=== PATIENT | male | born 1955 | race Caucasian/White ===

== ENCOUNTER 2016-12-04 06:15 | Inpatient (IN) | payer BC ==
--- NOTE | ~2016-12-04 | CO ---
Unit #: [id number] #: [id number] Patient: AMANDA MORALES JR [id number] [address] [address] [id number] MR#: [id number] NAME: AMANDA MORALES JR ROOM: 449 Age: 61 Sex: M Admission Date: 12/04/2016 : 1955 Attending Physician: Mario Phillips M.D. Consultation Date: 12/04/2016 CONSULTATION REPORT REASON FOR CONSULTATION Postop management. HISTORY OF PRESENT ILLNESS The patient is a 61-year-old male with a past medical history of hypertension, hyperlipidemia, coronary artery disease, diabetes, and obstructive sleep apnea, who was admitted by Dr. Phillips for right triple arthrodesis. The patient states that he has had about a seven-year history of right ankle pain. He states that it has been getting progressively worse. He states that the pain has been interfering with sleep. He underwent arthrodesis today. Regarding the patient's chronic medical conditions, he is diabetic. He is on metformin. He states that his blood sugars have been around 93 to 109. He has obstructive sleep apnea and is noncompliant with CPAP but does have the machine at home. He also has coronary artery disease and is status post multiple cardiac stents. He is followed by Dr. Lucia at [facility]. PAST MEDICAL HISTORY 1. Admission to [facility] in February 2015 for chest pain. 2. Coronary artery disease, status post cardiac stent placement, followed by Dr. Lucia. 3. Hypertension. 4. Hyperlipidemia. 5. Diabetes. 6. Obstructive sleep apnea, noncompliant with CPAP. PAST SURGICAL HISTORY 1. Bilateral knee surgery. 2. Cardiac catheterization. 3. Cardiac stent placement. SOCIAL HISTORY The patient is retired from [employer]. There is no tobacco or alcohol use. He typically walks without assistance. FAMILY HISTORY The patient's dad had coronary artery disease with his first heart attack in his 50s. ALLERGIES Unit #: [id number] #: [id number] Patient: AMANDA MORALES JR Morphine. HOME MEDICATIONS 1. Avapro 300 mg at bedtime. 2. Lipitor 20 mg at bedtime. 3. Plavix 75 mg daily. 4. Aspirin 81 mg daily. 5. Glucophage 500 mg twice daily. 6. Diphenhydramine 25 mg at bedtime p.r.n. REVIEW OF SYSTEMS A complete review of systems is negative except as indicated in the History of Present Illness. PHYSICAL EXAMINATION VITAL SIGNS: Temperature is 98, pulse 84, respirations 15, blood pressure 125/74, and oxygen saturation is 97%. GENERAL: Patient is a male who is awake, alert, and in no acute distress. HEENT: Head is atraumatic. Mucous membranes are moist. NECK: Supple. Trachea is midline. CARDIOVASCULAR: Regular rate and rhythm. LUNGS: Clear to auscultation bilaterally with no increased work of breathing. ABDOMEN: Soft and nontender with bowel sounds present in all four quadrants. EXTREMITIES: An Vinayak bandage is noted about the right ankle and is clean, dry, and intact. There is no pedal edema involving the left foot. NEUROLOGIC: Patient is awake and alert. He follows commands. PSYCHIATRIC: Mood and affect are normal. Patient is cooperative. SKIN: Skin of examined areas is warm and dry. DIAGNOSTIC STUDIES LABORATORY: Complete blood count is notable for MCV of 81.7. Basic metabolic panel notable for glucose of 126. CARDIOLOGY: EKG from September 04, 2016, showed normal sinus rhythm with a rate of 65 beats per minute. ASSESSMENT The patient is a 61-year-old male with: 1. Status post right ankle surgery. 2. Hypertension. 3. Hyperlipidemia. 4. History of coronary artery disease, status post multiple stent placement. 5. Diabetes. 6. Obstructive sleep apnea, noncompliant with CPAP. PLAN 1. Regarding diabetes, I have ordered a hemoglobin A1c, as well as low-dose sliding scale insulin with Accu-Cheks. 2. Regarding obstructive sleep apnea, the patient is on the sleep apnea protocol. Thank you very much for the consultation. We will follow the patient along closely with you. Unit #: [id number] #: [id number] Patient: AMANDA MORALSE JR Dictated by... Kia Peacock M.D. CARLEE/ramona TD: 12/04/2016 15:01 JOB #: [id number] CONSULTATION REPORT Page 1 of 1 X Kia Peacock MD X CONSULTATION REPORT
--- NOTE | ~2016-12-04 | OR ---
Unit #: [id number] #: [id number] Patient: AMANDA LAM JR [id number] [address] [place], [place] [address] [id number] I MR#: [id number] NAME: AMANDA LAM JR ROOM: [facility] Date of Procedure: 12/04/2016 Admission Date: 12/04/2016 Surgeon: Mario Phillips M.D. : 1955 Attending Physician: Mario Phillips M.D. Primary Care Physician: Generic Doctor Not In System OPERATIVE REPORT PREOPERATIVE DIAGNOSES 1. Stage III right posterior tibial tendon tear. 2. Right first tarsometatarsal joint arthritis. 3. Right ankle equinus. POSTOPERATIVE DIAGNOSES 1. Stage III right posterior tibial tendon tear. 2. Right first tarsometatarsal joint arthritis. 3. Right ankle equinus. PROCEDURES PERFORMED 1. Right foot triple arthrodesis (77614). 2. Right first tarsometatarsal joint fusion (96036). 3. Right gastrocnemius recession (67823). SKELP PROCESSOR MD [place] and DANIAL Lam. ANESTHESIA General and popliteal saphenous block. INDICATIONS FOR SURGERY The patient is a 61-year-old male with stage III right posterior tibial tendon dysfunction, which has left him with a rigid deformed foot. He has lost his medial longitudinal arch and has significant heel valgus. He also has arthritis of the first tarsometatarsal joint with the first metatarsal elevation. The patient is therefore to undergo surgical correction, which will entail triple arthrodesis fusion of the symptomatic first tarsometatarsal joint and gastrocnemius recession to treat his equinus. DESCRIPTION OF PROCEDURE The patient underwent right popliteal saphenous block. He was then taken to the operating room, placed in a supine position, and general anesthetic was induced. The right lower extremity was identified as the correct operative location during the time-out procedure. The IV antibiotic protocol was followed. The right leg was then prepped and draped in the usual sterile fashion. The leg was exsanguinated and the thigh tourniquet inflated to 300 mmHg. A lateral longitudinal incision was made over the sinus tarsi, ending at the base of the fourth metatarsal. Subcutaneous tissue was divided. The Unit #: [id number] #: [id number] Patient: AMANDA LAM JR extensor retinaculum was opened and the extensor digitorum brevis muscle was split longitudinally. The contents of the sinus tarsi were excised. A laminar director recreation was placed. The power osteotome, curved curettes, and rongeurs were utilized to remove the articular cartilage from both sides of the subtalar joint. The calcaneocuboid joint was then exposed with subperiosteal dissection. Baby Hohmann retractors were placed. The power osteotome, curved curettes, and rongeurs were then used to remove the cartilage from both sides of the calcaneocuboid joint. The underlying subchondral bone was feathered with the power osteotome. A dorsomedial midfoot incision was made between the anterior tibial and posterior tibial tendons. The subcutaneous tissue was divided. The joint capsule was opened, and the talonavicular joint was exposed with subperiosteal dissection. The joint was distracted with a laminar director recreation. The power osteotome, curved curettes, and rongeurs were then used to remove the articular cartilage from both sides of the talonavicular joint. The underlying subchondral bone was feathered with the power osteotome. 5 mL of Augment platelet-derived growth factor were then placed in all 3 joints. The subtalar joint was then reduced with the laminar director recreation by increasing the distance between the anterior calcaneal process and lateral talar process. The subtalar joint was fixated with an OrthoHelix 7.0 mm diameter cannulated screw placed from the posterior inferior heel into the talar neck. The midfoot was then pronated and adducted to correct this position. The talonavicular joint was then fixated to the cannulated OrthoHelix 5.5 mm diameter screw placed from distal to proximal. The calcaneocuboid joint was fixated with a 5.5 mm diameter screw placed from distal to proximal. A dorsal longitudinal incision was made over the first tarsometatarsal joint. The extensor hallucis longus tendon was retracted. The joint was exposed with subperiosteal dissection. The microsagittal saw and power osteotome were then used to remove the articular cartilage from both sides of the first tarsometatarsal joint. The underlying subchondral bone was feathered with the power osteotome. 1 mL of Augment platelet-derived growth factor was placed in the joint. The joint was then reduced by plantar flexing the first ray to correct forefoot varus. The joint was then fixated with two crossed OrthoHelix 4.0 mm diameter screws. One screw was placed from proximal to distal, the second was placed from dorsal distal to proximal plantar. Excellent fixation was achieved. Intraoperative C-arm fluoroscopy documented satisfactory hardware position and joint positions. A 5 cm posteromedial mid calf incision was then made. Subcutaneous tissue was divided. The deep fascia was opened. The interval between the gastrocnemius and soleus fascia was developed, and [place] scissors were then used to cut the gastrocnemius fascia. Following release, 10 degrees of ankle dorsiflexion was obtained. The tourniquet was released with a total tourniquet time of 2 hours 10 minutes. Bleeding was controlled with electrocautery. The deep tissues were closed with 2-0 Vicryl, subcutaneous tissue was closed with 3-0 Vicryl, and the skin was closed with interrupted 3-0 nylon horizontal Unit #: [id number] #: [id number] Patient: AMANDA LAM JR mattress sutures. Xeroform gauze, dressing, sponges, and a posterior fiberglass splint were applied with two Vinayak wraps. The patient was then transported to the recovery room in stable condition. ESTIMATED BLOOD LOSS 100 mL. COMPLICATIONS None. SPECIMENS None. TOURNIQUET TIME 2 hours 10 minutes. Dictated byMiguel Wong/gm TD: 12/05/2016 03:45 JOB #: [id number] OPERATIVE REPORT Page 1 of 1 X Daniel Phillips MD X PROCEDURE OPERATIVE NOTE
--- NOTE | ~2016-12-04 | EKG ---
PATIENT: AMANDA MORALES UNIT #: [id number] Ventricular Rate: 68 BPM Atrial Rate: 68 BPM P-R Interval: 142 ms QRS Duration: 104 ms Q-T Interval: 430 ms QTC Calculation(Bezet): 457 ms P University: 33 degrees Calculated R University: -5 degrees Calculated T University: 41 degrees Diagnosis Line: Normal sinus rhythm Diagnosis Line: Normal ECG Diagnosis Line: When compared with ECG of 04-SEP-2016 09:32, Diagnosis Line: No significant change was found Diagnosis Line: Confirmed by JASWINDER CAMPBELL MD ([id number]) on Diagnosis Line: 12/05/2016 8:49:08 AM INTERPRETING MD: SHANNAN CORREIA
--- NOTE | ~2016-12-04 | HP ---
Unit #: [id number] #: [id number] Patient: AMANDA MORALES JR [id number] [address] [address] [id number] I MR#: [id number] NAME: AMANDA MORALES JR ROOM: 449 Age: 61 Sex: M Admission Date: 12/04/2016 : 1955 Attending Physician: Mario Phillips M.D. Primary Care Physician: Generic Doctor Not In System HISTORY AND PHYSICAL CHIEF COMPLAINT Right foot pain and deformity. HISTORY OF PRESENT ILLNESS The patient is a 60-year-old male with a long history of right foot and ankle pain secondary to stage III posterior tibial tendon dysfunction. Ankle x-rays show valgus of the tibiotalar joint. He has failed nonoperative treatment to include bracing and activity modification. He is therefore admitted for triple arthrodesis, first tarsometatarsal joint fusion and gastrocnemius recession with use of Augment platelet direct growth factor. PAST MEDICAL HISTORY Remarkable for: 1. Coronary artery disease. 2. Lumbosacral degenerative disk disease. 3. Essential hypertension. 4. Knee arthritis. PAST SURGICAL HISTORY 1. Coronary angioplasty with stent placement. 2. Skin cancer excision from the left ear and eyebrow. HOME MEDICATIONS 1. Amlodipine. 2. Aspirin. 3. Atorvastatin. 4. Plavix. 5. Avapro. 6. Mobic. 7. Norvasc. 8. Lipitor. ALLERGIES Morphine. SOCIAL HISTORY The patient is a nonsmoker. He denies illicit drug use. He denies alcohol use. FAMILY HISTORY Unknown. Unit #: [id number] #: [id number] Patient: AMANDA MORALES JR REVIEW OF SYSTEMS Unremarkable except as noted in history of present illness. PHYSICAL EXAMINATION HEIGHT: 6 feet 2 inches WEIGHT: 298 pounds BMI: 38.2 GENERAL: This is a well-developed, well-nourished male in no acute distress. HEENT: Pharynx is clear. NECK: Supple without masses. HEART: Regular sinus rhythm without murmurs or gallops. LUNGS: Clear. ABDOMEN: Soft and nontender without masses or organomegaly. RIGHT FOOT: Pes planus deformity. The right heel was in 20 degrees of valgus. He has a positive [id number] sign. He is able to do a single heel rise on the left; cannot do it on the right. He has prominence of the medial mid foot. There is tenderness to palpation over the medial talonavicular joint, anterior ankle and sinus tarsi. There is palpable subtalar impingement against the calcaneus. Sensation is normal. Dorsalis pedis is 1+/2, posterior tibial pulse is not palpated. There is normal capillary refill. Ankle dorsiflexion is limited to neutral. Subtalar motion is limited. First MTP motion is limited. DIAGNOSTIC STUDIES IMAGING: Standing x-rays of the right ankle demonstrate mild tibiotalar valgus of only a few degrees. Standing x-rays of the right foot show first tarsometatarsal joint degenerative arthritis with joint space narrowing. There are degenerative changes of the subtalar joint and calcaneal cuboid joint. There is 70% coverage of the talonavicular joint. There is anterior talofibular impingement. ADMITTING DIAGNOSIS Stage 3 right posterior tibial tendon dysfunction with degenerative arthritis of the subtalar and talonavicular joints and first tarsometatarsal joint. PLAN The patient has failed conservative care. He will therefore undergo right foot triple arthrodesis, fusion of the first tarsometatarsal joint and possible gastrocnemius recession. We will utilize the platelet-derived growth factor. This procedure was described in detail along with the risks of bleeding, infection, nerve damage, need for further surgery in the future, prolonged recovery time, deep venous thrombosis, pulmonary embolism, anesthetic complications, nonunion, malunion, need for possible hardware removal in the future. He understands the above risks and agrees to proceed. Dictated by Mario Phillips M.D. Unit #: [id number] #: [id number] Patient: AMANDA MORALES JR CHUCKY/carina TD: 12/03/2016 20:46 JOB #: [id number] HISTORY AND PHYSICAL Page 1 of 1 X Daniel Phillips MD HISTORY AND PHYSICAL
[~2016-12-04 06:15] MED LIST: ALLERGY RELIEF25 MG PO; ASPIRIN81 M2 PO; AVAPRO300 M1 PO; CLOPIDOGREL75 MG PO; GLUCOPHAGE500 MG PO; LIPITOR20 MG PO; TOUJEO SOL300 UNIT/1
[2016-12-04] MEDS ORDERED: KETOCONAZOLE15 GM TOP (07:13)
[2016-12-04 07:22] LABS: HEMOGLOBIN 14.2 gm/dL (13.0-16.0); MEAN CELL VOLUME 81.7 FL (83-96); MEAN CORPUSCULAR HGB CONC 33.1 g/dL (30-36); MEAN PLATELET VOLUME 7.7 FL (6.5-11.5); RED BLOOD COUNT 5.26 X10e (3.90-5.60); WHITE BLOOD COUNT 8.6 X10e3 (4.0-10.5)
[2016-12-04 07:54] LABS: CALCIUM SERUM 9.1 mg/dL (8.4-10.2); GLOM FILT RATE Estimated 80.9 mL/min (>60); POTASSIUM 4.3 mmol/L (3.5-5.1)
[2016-12-04 18:27] LABS: %MB 3.4 % (0.0-4.0); MB 3.6 ng/ml
[2016-12-04 23:23] LABS: %MB 4.3 % (0.0-4.0); MB 5.8 ng/ml
[2016-12-05 03:29] LABS: BASOPHIL% 0.2 % (0-2.5); DIFF IND NO; HEMATOCRIT 39.2 % (38.0-50.0); HEMOGLOBIN 12.9 gm/dL (13.0-16.0); LYMPHOCYTE# 0.8 X10e3 (1.0-3.5); LYMPHOCYTE% 6.5 % (17.0-45.0); MEAN CELL VOLUME 82.3 FL (83-96); MEAN CORPUSCULAR HEMOGLOBIN 27.1 PG (28-34); MEAN CORPUSCULAR HGB CONC 32.9 g/dL (30-36); MEAN PLATELET VOLUME 7.5 FL (6.5-11.5); MONOCYTE# 0.9 X10e3 (0-1.0); MONOCYTE% 7.2 % (3.0-12.0); NEUTROPHIL% 86.1 % (40-75); PLATELET COUNT 228 X10e3 (140-420); RED BLOOD COUNT 4.76 X10e (3.90-5.60); RED CELL DISTRIBUTION WIDTH 14.5 % (11.0-15.5); WHITE BLOOD COUNT 12.8 X10e3 (4.0-10.5)
[2016-12-05 03:55] LABS: BUN/CREATININE RATIO 11.81; CALCIUM SERUM 8.7 mg/dL (8.4-10.2); CREATININE SERUM 1.1 mg/dL (0.6-1.4); GLOM FILT RATE Estimated 72.1 mL/min (>60)
[2016-12-05] MEDS ORDERED: PERCOCET5/325 PO (10:56)
== END 2016-12-05 13:45 | disposition home or self-care (01) | DRG 505 ==
LOC: CSUR 06:15 → CPACUOF 08:30 → CSUR 08:30 → CPACUOF 11:30 → C4B 12:25
PROVIDERS: Family Medicine; Orthopaedic Surgery
PROC: 0SGM04Z Fusion of Right Metatarsal-Phalangeal Joint with Internal Fixation Device, Open Approach (ICD-10-PCS; 2016-12-04)
PROC: 0L8N0ZZ Division of Right Lower Leg Tendon, Open Approach (ICD-10-PCS; 2016-12-04)
PROC: 0SGH04Z Fusion of Right Tarsal Joint with Internal Fixation Device, Open Approach (ICD-10-PCS; principal; 2016-12-04 08:30)
PROC: 0SGH04Z Fusion of Right Tarsal Joint with Internal Fixation Device, Open Approach (ICD-10-PCS; 2016-12-04 08:30)
PROC: 0SGH04Z Fusion of Right Tarsal Joint with Internal Fixation Device, Open Approach (ICD-10-PCS; 2016-12-04 08:30)
DX: M19.071 Primary osteoarthritis, right ankle and foot (principal); E11.65 Type 2 diabetes mellitus with hyperglycemia; I10 Essential (primary) hypertension; M67.873 Other specified disorders of tendon, right ankle and foot; M51.36 Other intervertebral disc degeneration, lumbar region; I25.10 Atherosclerotic heart disease of native coronary artery without angina pectoris; Z95.5 Presence of coronary angioplasty implant and graft; Z85.828 Personal history of other malignant neoplasm of skin; Z79.82 Long term (current) use of aspirin; E78.5 Hyperlipidemia, unspecified; G47.33 Obstructive sleep apnea (adult) (pediatric); Z91.19 Patient's noncompliance with other medical treatment and regimen; Z79.84 Long term (current) use of oral hypoglycemic drugs
CPT/HCPCS: 80048; 82550; 82553; 82947; 83036; 84484; 85025; 85027; 93005; 94010; 94760; 94761; 94762; 97116; 97161; 97530; C1713; J0690; J1815; J2250; J2405; J2795; J3010